=== PATIENT | male | born 1955 | race Hispanic/Latino ===

== ENCOUNTER 2017-11-22 07:25 | Day surgery (SDC) | payer BC ==
[2017-11-16 10:23] VITALS: BMI 40.3
[2017-11-22] MEDS ORDERED: Midazolam 2 MG/2 ML VIAL ONE ×2 (08:42→09:45)
[2017-11-22] MEDS ORDERED: Propofol 10 mg/ml Inj (20 ML) ONE ×7 (08:42→10:50)
[2017-11-22] MEDS ORDERED: Glucagon Recombinant 1 mg Inj ONE (10:35)
[2017-11-22] MEDS ORDERED: Sodium Chloride 0.9% 1,000 ML IV SCH (11:15)
[2017-11-22 12:05] VITALS: BP 142/78; PULSE 69; RESP 18; TEMP 97.4; O2SAT 99
== END 2017-11-22 12:28 | disposition home or self-care (01) ==
LOC: ENDO 07:25
PROVIDERS: ATTEND Internal Medicine Gastroenterology
DX: D12.2 Benign neoplasm of ascending colon (principal); K63.5 Polyp of colon; K57.30 Diverticulosis of large intestine without perforation or abscess without bleeding; K64.8 Other hemorrhoids
CPT/HCPCS: 45380; 45381; 45385; 82948; 88305; J1610; J2250; J2704; J3010; J7040 ×2